=== PATIENT | male | born 1995 | race Caucasian/White ===

== ENCOUNTER 2024-04-18 15:19 | Emergency (ER) | payer OTHER ==
[2024-04-18] MEDS ORDERED: fentaNYL 50 mcg/mL 1 mL Vial ONE ×2 (15:37→17:03)
[2024-04-18] MEDS ORDERED: levETIRAcetam 500 MG (5 mL) VIAL ONE (15:38)
[2024-04-18] MEDS ORDERED: Sodium Chloride 0.9% 100 ML ONE (15:38)
[2024-04-18] MEDS ORDERED: Boostrix 0.5 ML (Tdap) VIAL (>/=7 yrs of age) ONE (15:38)
[2024-04-18 15:48] LABS: #Basophils 0.1 thou/uL (0.0-0.2); #Eosinphils 0.1 thou/uL (0.0-0.7); #Lymphocytes 2.2 thou/uL (1.20-3.40); #Monocytes 0.7 thou/uL (0.11-0.59); #Neutrophils 2.6 thou/uL (1.40-6.50); %Eosinophils 1.6 % (0.0-10.0); %Lymphocytes 38.8 % (21.0-51.0); %Monocytes 12.1 % (0.0-10.0); %Neutrophils 46.5 % (42.0-75.0); Hematocrit 40.3 % (42.0-52.0); Hemoglobin 13.1 g/dL (14.0-18.0); Mean Corpuscular HGB CONC 32.6 g/dL (32.0-36.0); Mean Corpuscular Hemoglobin 31.1 pg (27.0-31.0); Mean Corpuscular Volume 95.3 fl (78.0-98.0); Mean Platelet Volume 8.2 fL (7.4-10.4); Platelet Count 194 10x3/uL (130-400); RBC Distribution Width 11.9 % (11.5-14.5); Red Blood Cell (RBC) Count 4.22 mill/uL (4.70-6.10); White Blood Cell (WBC) Count 5.5 10x3/uL (4.8-10.8)
[2024-04-18 16:09] LABS: ALT (SGPT) 24 U/L (8-55); AST (SGOT) 22 U/L (5-34); Albumin 4.5 g/dL (3.5-5.0); Alkaline Phosphatase 68 U/L (40-110); Anion Gap 15 mmol/L (10-20); BUN (Urea Nitrogen) 9 mg/dL (8.9-20.6); Bilirubin, Total 0.3 mg/dL (0.2-1.2); Calc. Creatinine Clearance 0 mL/min (70-130); Calcium 9.7 mg/dL (7.8-10.44); Carbon Dioxide 24 mmol/L (22-29); Chloride 106 mmol/L (98-107); Estimated GFR 123; Globulin 2.5 g/dL (2.4-3.5); Glucose 87 mg/dL (70-105); Sodium 141 mmol/L (136-145)
[2024-04-18] MEDS ORDERED: Lidocaine 1% w/Epinephrine 1:100K 20 ML VIAL ONE (16:26)
[2024-04-18] MEDS ORDERED: Ketorolac Tromethamine 30 MG (1 mL) VIAL ONE (16:35)
[2024-04-18] MEDS ORDERED: Bacitracin 1 PK ONE (17:02)
== END 2024-04-18 17:55 ==
LOC: NAV ERS 15:19
DX: R56.9 Unspecified convulsions (principal); S51.011A Laceration without foreign body of right elbow, initial encounter; F17.210 Nicotine dependence, cigarettes, uncomplicated; Z79.899 Other long term (current) drug therapy; Z23 Encounter for immunization; X58.XXXA Exposure to other specified factors, initial encounter; Y92.149 Unspecified place in prison as the place of occurrence of the external cause
CPT/HCPCS: 12002; 36415; 70450; 80053; 85025; 90471; 90715; 96365; 96375; 96376; J1885; J1953; J3010

== ENCOUNTER 2024-07-02 21:51 | Emergency (ER) | payer OTHER ==
[2024-07-02] MEDS ORDERED: Divalproex Sodium 250 MG ER.TAB ONE (22:25)
[2024-07-02] MEDS ORDERED: levETIRAcetam 500 MG TAB ONE (22:29)
== END 2024-07-03 00:33 ==
LOC: NAV ERS 21:51 → EEVIPCON 21:51 → NAV ERS 07-03 00:33
DX: G40.909 Epilepsy, unspecified, not intractable, without status epilepticus (principal); S01.01XA Laceration without foreign body of scalp, initial encounter; Z79.899 Other long term (current) drug therapy; W22.8XXA Striking against or struck by other objects, initial encounter
CPT/HCPCS: 12013; 70450; 70486; 72125

== ENCOUNTER 2024-08-02 23:39 | Emergency (ER) | payer OTHER ==
[2024-08-03 00:30] LABS: #Basophils 0.1 thou/uL (0.0-0.2); #Lymphocytes 2.8 thou/uL (1.20-3.40); #Monocytes 0.6 thou/uL (0.11-0.59); %Basophils 0.9 % (0.0-1.0); %Eosinophils 0.7 % (0.0-10.0); %Lymphocytes 43.4 % (21.0-51.0); %Monocytes 8.5 % (0.0-10.0); %Neutrophils 46.4 % (42.0-75.0); Hematocrit 39.1 % (42.0-52.0); Hemoglobin 13.3 g/dL (14.0-18.0); Mean Corpuscular HGB CONC 33.9 g/dL (32.0-36.0); Mean Corpuscular Hemoglobin 29.9 pg (27.0-31.0); Mean Corpuscular Volume 88.3 fl (78.0-98.0); Mean Platelet Volume 7.9 fL (7.4-10.4); Platelet Count 207 10x3/uL (130-400); RBC Distribution Width 10.8 % (11.5-14.5); Red Blood Cell (RBC) Count 4.43 mill/uL (4.70-6.10); White Blood Cell (WBC) Count 6.5 10x3/uL (4.8-10.8)
[2024-08-03] MEDS ORDERED: levETIRAcetam 500 MG (5 mL) VIAL ONE (00:38)
[2024-08-03] MEDS ORDERED: Lorazepam 2 MG/ML VIAL ONE (00:43)
[2024-08-03] MEDS ORDERED: Sodium Chloride 0.9% 250 ML 250 ML ONE (00:43)
[2024-08-03 00:51] LABS: ALT (SGPT) 27 U/L (8-55); AST (SGOT) 19 U/L (5-34); Albumin 4.1 g/dL (3.5-5.0); Alkaline Phosphatase 81 U/L (40-110); Anion Gap 14 mmol/L (10-20); BUN (Urea Nitrogen) 12 mg/dL (8.9-20.6); Bilirubin, Total 0.2 mg/dL (0.2-1.2); Calc. Creatinine Clearance 0 mL/min (70-130); Calcium 9.5 mg/dL (7.8-10.44); Carbon Dioxide 24 mmol/L (22-29); Chloride 104 mmol/L (98-107); Estimated GFR 123; Globulin 2.9 g/dL (2.4-3.5); Glucose 100 mg/dL (70-105); Potassium 3.4 mmol/L (3.5-5.1); Sodium 139 mmol/L (136-145)
[2024-08-03] MEDS ORDERED: fentaNYL 50 mcg/mL 1 mL Vial ONE (01:02)
[2024-08-03] MEDS ORDERED: Ondansetron PF 4 MG/2 ML Vial ONE (01:02)
[2024-08-03 01:21] LABS: Bilirubin Negative (Negative); Blood, Urine Negative (Negative); Clarity Clear (Clear); Glucose, Urine (Dipstick) Negative (Negative); Ketone, Urine Negative (Negative); Leukocyte Negative (Negative); Nitrite Negative (Negative); Protein, Urine (Dipstick) Negative (Neg-Trace); RBC/HPF 0-3 HPF (0-3); Specific Gravity, Urine 1.015 (1.005-1.030); Urobilinogen 0.2 mg/dL (Less than 2)
[2024-08-03 01:22] LABS: CAUTI Indications for Culture Alt mental st,lethar; WBC/HPF None Seen HPF (0-3)
[2024-08-03 01:23] LABS: Urine Culture Reflex No No
[2024-08-03 01:28] LABS: Amphetamine Not Detected (NotDetected); Barbiturates Screen Not Detected (NotDetected); Benzodiazepine Screen Not Detected (NotDetected); Cocaine Metabolite Screen Not Detected (NotDetected); Methadone Not Detected (NotDetected); Methamphetamine Not Detected (NotDetected); Opiate Screen Not Detected (NotDetected); Oxycodone Screen Not Detected (NotDetected); Phencyclidine (PCP) Not Detected (NotDetected); THC/Cannabinoid Screen Not Detected (NotDetected); Tricyclic Screen Not Detected (NotDetected)
[2024-08-03] MEDS ORDERED: Sodium Chloride 0.9% 1,000 ML ONE (01:31)
[2024-08-03] MEDS ORDERED: Acetaminophen 500 MG TAB ONE (01:40)
[2024-08-03] MEDS ORDERED: busPIRone HCl 15 MG TAB ONE (04:43)
[2024-08-03] MEDS ORDERED: levETIRAcetam 500 MG TAB ONE (04:43)
[2024-08-03] MEDS ORDERED: Docusate 100 MG CAP ONE (04:43)
[2024-08-03] MEDS ORDERED: Divalproex Sodium 250 MG ER.TAB ONE (04:44)
[2024-08-03] MEDS ORDERED: Venlafaxine HCl XR 75 MG CAP ONE (04:44)
[2024-08-03] MEDS ORDERED: Divalproex Sodium 250 MG (DR) TAB PO SCH (05:00)
[2024-08-03] MEDS ORDERED: Clotrimazole 1% Cream 15 GM TUBE TOP SCH (05:15)
== END 2024-08-03 08:30 | disposition short-term general hospital (02) ==
LOC: NAV ERS 23:39 → EEVIPCON 23:39 → NAV ERS 08-03 08:30
DX: G40.209 Localization-related (focal) (partial) symptomatic epilepsy and epileptic syndromes with complex partial seizures, not intractable, without status epilepticus (principal); S01.01XA Laceration without foreign body of scalp, initial encounter; Z79.899 Other long term (current) drug therapy; Z87.891 Personal history of nicotine dependence; X58.XXXA Exposure to other specified factors, initial encounter
CPT/HCPCS: 12002; 70450; 72125; 80053; 80164; 80306; 81001; 85025; 96374; 96375; J1953; J2060; J2405; J3010; J7030; J7050

== ENCOUNTER 2024-08-29 21:53 | Emergency (ER) | payer OTHER ==
[2024-08-29] MEDS ORDERED: Lidocaine 1% w/Epinephrine 1:100K 20 ML VIAL ONE (22:28)
[2024-08-29] MEDS ORDERED: Divalproex Sodium 250 MG ER.TAB ONE (23:34)
[2024-08-29] MEDS ORDERED: Bacitracin 1 PK ONE (23:40)
[2024-08-29] MEDS ORDERED: Ketorolac Tromethamine 30 MG (1 mL) VIAL ONE (23:40)
[2024-08-29] MEDS ORDERED: Lacosamide 50 mg Tablet PO SCH (23:45)
== END 2024-08-30 00:05 ==
LOC: NAV ERS 21:53
DX: S01.111A Laceration without foreign body of right eyelid and periocular area, initial encounter (principal); R56.9 Unspecified convulsions; R51.9 Headache, unspecified; Z87.891 Personal history of nicotine dependence; R00.0 Tachycardia, unspecified; X58.XXXA Exposure to other specified factors, initial encounter
CPT/HCPCS: 12011; 70450; 72125; 96374; J1885

== ENCOUNTER 2024-09-21 00:46 | Emergency (ER) | payer OTHER ==
[2024-09-21] MEDS ORDERED: levETIRAcetam 500 MG TAB ONE (00:51)
[2024-09-21] MEDS ORDERED: Lidocaine 1% (PF) 30 ML VIAL ONE (01:09)
== END 2024-09-21 01:41 ==
LOC: NAV ERS 00:46
DX: G40.909 Epilepsy, unspecified, not intractable, without status epilepticus (principal); S01.01XA Laceration without foreign body of scalp, initial encounter; Z87.891 Personal history of nicotine dependence; W22.8XXA Striking against or struck by other objects, initial encounter
CPT/HCPCS: 12001; 99284

== ENCOUNTER 2024-10-07 13:49 | Emergency (ER) | payer OTHER ==
[2024-10-07] MEDS ORDERED: Acetaminophen 500 MG TAB ONE (14:29)
[2024-10-07] MEDS ORDERED: Ondansetron ODT 4 MG TAB ONE (14:29)
== END 2024-10-07 14:39 | disposition home or self-care (01) ==
LOC: NAV ERS 13:49
DX: S01.81XA Laceration without foreign body of other part of head, initial encounter (principal); R56.9 Unspecified convulsions; Z87.891 Personal history of nicotine dependence; W22.8XXA Striking against or struck by other objects, initial encounter
CPT/HCPCS: 12011; 99283; Q0162

== ENCOUNTER → 2024-10-27 | Emergency (ER) | payer OTHER ==
[2024-10-28 23:17] LABS: ALT (SGPT) 30 U/L (8-55); AST (SGOT) 21 U/L (5-34); Albumin 4.2 g/dL (3.5-5.0); Alkaline Phosphatase 67 U/L (40-110); Anion Gap 13 mmol/L (10-20); BUN (Urea Nitrogen) 6 mg/dL (8.9-20.6); Bilirubin, Total 0.3 mg/dL (0.2-1.2); Calc. Creatinine Clearance 0 mL/min (70-130); Calcium 9.5 mg/dL (7.6-10.4); Carbon Dioxide 25 mmol/L (22-29); Chloride 107 mmol/L (98-107); Estimated GFR 124; Globulin 2.7 g/dL (2.4-3.5); Glucose 100 mg/dL (70-105); Potassium 3.8 mmol/L (3.5-5.1); Protein, Total 6.9 g/dL (6.0-8.3); Sodium 141 mmol/L (136-145)
[2024-10-28 23:18] LABS: #Neutrophils 2.1 thou/uL (1.40-6.50); %Basophils 1.1 % (0.0-1.0); %Eosinophils 0.3 % (0.0-10.0); %Lymphocytes 43.4 % (21.0-51.0); %Monocytes 9.6 % (0.0-10.0); %Neutrophils 45.5 % (42.0-75.0); Hematocrit 38.3 % (42.0-52.0); Hemoglobin 13.8 g/dL (14.0-18.0); Mean Corpuscular Hemoglobin 32.1 pg (27.0-31.0); Mean Corpuscular Volume 89.3 fl (78.0-98.0); Mean Platelet Volume 7.9 fL (7.4-10.4); Platelet Count 229 10x3/uL (130-400); RBC Distribution Width 11.1 % (11.5-14.5); Red Blood Cell (RBC) Count 4.29 mill/uL (4.70-6.10); White Blood Cell (WBC) Count 4.6 10x3/uL (4.8-10.8)
[2024-10-28 23:19] LABS: #Basophils 0.1 thou/uL (0.0-0.2); #Monocytes 0.4 thou/uL (0.11-0.59)
== END ==
LOC: NAV ERS 19:52
DX: S01.81XA Laceration without foreign body of other part of head, initial encounter (principal); G40.909 Epilepsy, unspecified, not intractable, without status epilepticus; W01.198A Fall on same level from slipping, tripping and stumbling with subsequent striking against other object, initial encounter
CPT/HCPCS: 12011; 70450; 72125; 80053; 85025; 99284

== ENCOUNTER 2024-11-06 21:07 | Emergency (ER) | payer OTHER ==
[2024-11-06] MEDS ORDERED: Acetaminophen 500 MG TAB ONE (21:54)
[2024-11-06 21:55] LABS: #Basophils 0.1 thou/uL (0.0-0.2); #Lymphocytes 2.4 thou/uL (1.20-3.40); #Monocytes 0.5 thou/uL (0.11-0.59); #Neutrophils 2.3 thou/uL (1.40-6.50); %Basophils 1.6 % (0.0-1.0); %Eosinophils 0.1 % (0.0-10.0); %Lymphocytes 44.7 % (21.0-51.0); %Neutrophils 43.6 % (42.0-75.0); Hematocrit 41.2 % (42.0-52.0); Hemoglobin 14.5 g/dL (14.0-18.0); Mean Corpuscular HGB CONC 35.1 g/dL (32.0-36.0); Mean Corpuscular Hemoglobin 31.6 pg (27.0-31.0); Mean Corpuscular Volume 89.9 fl (78.0-98.0); Mean Platelet Volume 8.7 fL (7.4-10.4); Platelet Count 271 10x3/uL (130-400); RBC Distribution Width 11.1 % (11.5-14.5); Red Blood Cell (RBC) Count 4.59 mill/uL (4.70-6.10); White Blood Cell (WBC) Count 5.3 10x3/uL (4.8-10.8)
[2024-11-06] MEDS ORDERED: levETIRAcetam 500 MG (5 mL) VIAL ONE (21:55)
[2024-11-06] MEDS ORDERED: Sodium Chloride 0.9% 0 ML ONE (21:55)
[2024-11-06] MEDS ORDERED: Ondansetron PF 4 MG/2 ML Vial ONE (21:55)
[2024-11-06] MEDS ORDERED: Morphine 4 MG/ML VIAL ONE (21:55)
[2024-11-06 22:06] LABS: Anion Gap 14 mmol/L (10-20); BUN (Urea Nitrogen) 8 mg/dL (8.9-20.6); Calc. Creatinine Clearance 0 mL/min (70-130); Calcium 9.7 mg/dL (7.8-10.44); Carbon Dioxide 24 mmol/L (22-29); Chloride 106 mmol/L (98-107); Estimated GFR 123; Glucose 102 mg/dL (70-105); Potassium 4.2 mmol/L (3.5-5.1); Sodium 140 mmol/L (136-145)
[2024-11-06 22:46] LABS: Bilirubin Negative (Negative); Blood, Urine Negative (Negative); Clarity Clear (Clear); Glucose, Urine (Dipstick) Negative (Negative); Ketone, Urine Trace mg/dL (Negative); Leukocyte Negative (Negative); Nitrite Negative (Negative); Protein, Urine (Dipstick) Negative (Neg-Trace); Specific Gravity, Urine 1.015 (1.005-1.030); Urobilinogen 0.2 mg/dL (Less than 2)
[2024-11-06 22:52] LABS: Bacteria/HPF Rare-Few HPF (None Seen); CAUTI Indications for Culture Fever or rigors; RBC/HPF 0-3 HPF (0-3); Urine Culture Reflex No No; WBC/HPF 0-3 HPF (0-3)
[2024-11-06 22:53] LABS: Amphetamine Not Detected (NotDetected); Barbiturates Screen Not Detected (NotDetected); Benzodiazepine Screen Not Detected (NotDetected); Cocaine Metabolite Screen Not Detected (NotDetected); Methadone Not Detected (NotDetected); Methamphetamine Not Detected (NotDetected); Opiate Screen Detected (NotDetected); Oxycodone Screen Not Detected (NotDetected); Phencyclidine (PCP) Not Detected (NotDetected); THC/Cannabinoid Screen Not Detected (NotDetected); Tricyclic Screen Not Detected (NotDetected)
== END 2024-11-07 00:28 ==
LOC: NAV ERS 21:07
DX: G40.909 Epilepsy, unspecified, not intractable, without status epilepticus (principal)
CPT/HCPCS: 70450; 71045; 72125; 80048; 80306; 81001; 83605; 85025; 93005; 96374; 96375; J1953; J2272; J2405; J7030

== ENCOUNTER 2024-11-21 20:46 | Emergency (ER) | payer OTHER ==
[2024-11-21 21:23] LABS: #Monocytes 0.4 thou/uL (0.11-0.59); #Neutrophils 2.2 thou/uL (1.40-6.50); %Basophils 0.9 % (0.0-1.0); %Eosinophils 0.6 % (0.0-10.0); %Monocytes 7.8 % (0.0-10.0); %Neutrophils 47.7 % (42.0-75.0); Hematocrit 43.8 % (42.0-52.0); Hemoglobin 14.5 g/dL (14.0-18.0); Mean Corpuscular HGB CONC 33.1 g/dL (32.0-36.0); Mean Corpuscular Hemoglobin 29.4 pg (27.0-31.0); Mean Corpuscular Volume 88.9 fl (78.0-98.0); Platelet Count 272 10x3/uL (130-400); RBC Distribution Width 11.1 % (11.5-14.5); Red Blood Cell (RBC) Count 4.93 mill/uL (4.70-6.10); White Blood Cell (WBC) Count 4.6 10x3/uL (4.8-10.8)
[2024-11-21] MEDS ORDERED: levETIRAcetam 500 MG (5 mL) VIAL ONE (21:32)
[2024-11-21 21:40] LABS: ALT (SGPT) 21 U/L (8-55); AST (SGOT) 14 U/L (5-34); Albumin 3.9 g/dL (3.5-5.0); Alkaline Phosphatase 59 U/L (40-110); Anion Gap 12 mmol/L (10-20); BUN (Urea Nitrogen) 10 mg/dL (8.9-20.6); Bilirubin, Total 0.3 mg/dL (0.2-1.2); Calc. Creatinine Clearance 0 mL/min (70-130); Calcium 9.3 mg/dL (7.8-10.44); Carbon Dioxide 26 mmol/L (22-29); Chloride 107 mmol/L (98-107); Estimated GFR 123; Globulin 3.1 g/dL (2.4-3.5); Glucose 94 mg/dL (70-105); Potassium 3.8 mmol/L (3.5-5.1); Sodium 141 mmol/L (136-145)
[2024-11-21] MEDS ORDERED: Lorazepam 2 MG/ML VIAL ONE (22:10)
[2024-11-22] MEDS ORDERED: Divalproex Sodium 250 MG ER.TAB ONE (00:05)
== END 2024-11-22 00:20 ==
LOC: NAV ERS 20:46 → EEVIPCON 20:46 → NAV ERS 11-22 00:20
DX: G40.909 Epilepsy, unspecified, not intractable, without status epilepticus (principal); T18.5XXA Foreign body in anus and rectum, initial encounter; S41.111D Laceration without foreign body of right upper arm, subsequent encounter; W01.10XA Fall on same level from slipping, tripping and stumbling with subsequent striking against unspecified object, initial encounter
CPT/HCPCS: 36415; 70450; 74022; 80053; 85025; 96374; 96375; J1953; J2060